=== PATIENT | female | born 1965 | race Caucasian/White ===

== ENCOUNTER 2016-08-23 08:17 | Emergency (ER) | payer BC ==
[2016-08-23 08:46] VITALS: BP 141/69
--- NOTE | 2016-08-23 09:02 | RAD ---
Indication: Right foot pain. 3 views of the right foot demonstrates no fracture. No other bone or joint abnormality is identified. IMPRESSION: No fracture of the right foot is noted.
--- NOTE | 2016-08-23 09:18 | UC ---
Lower Extremity/Ankle HPI - HPI Summary HPI Summary: RIGHT FOOT PAIN X 1 DAY DROPPED SOMETHING ON HER RIGHT FOOT ONE DAY AGO INCREASE IN PAIN THIS AM , HAD DIFFICULTY THIS MORNING TO WALK - History of Current Complaint Chief Complaint: UCLowerExtremity Stated Complaint: RIGHT FOOT PAIN Time Seen by Provider: 08/23/16 08:41 Hx Obtained From: Patient Hx Last Menstrual Period: 08/22/16 ?: No Onset/Duration: Sudden Onset, Lasting Days - 1, Still Present Severity Initially: Moderate Severity Currently: Moderate Aggravating Factor(s): Standing, Ambulation Alleviating Factor(s): Rest, Elevation, Ice Able to Bear Weight: Yes - Allergies/Home Medications Allergies/Adverse Reactions: Allergies Allergy/AdvReac Type Severity Reaction Status Date / Time No Known Allergies Allergy Verified 08/23/16 08:28 Home Medications: Home Medications Calcium/Vitamin D TAB 250/125* [Oscal D TAB 250/125*] 1 tab PO DAILY 08/23/16 [ History Confirmed 08/23/16] PMH/Surg Hx/FS Hx/Imm Hx Endocrine History Of: Reports: Diabetes - type 2, Thyroid Disease - hypothyroid Cardiovascular History Of: Reports: Cardiac Disorders - DC x2- last was 2012; stent, angioplasty, Hypertension Respiratory History Of: Denies: COPD - cough for sev days - Surgical History Surgical History: Yes Surgery Procedure, Year, and Place: c-sect x2, cardiac stent, gastric bypass 2004 - Family History Known Family History: Positive: Hypertension - Social History Alcohol Use: Rare Substance Use Type: None Smoking Status (MU): Heavy Every Day Tobacco Smoker Type: Cigarettes Amount Used/How Often: 1 pack day Review of Systems Constitutional: Negative Skin: Negative Eyes: Negative Musculoskeletal: Other: - RIGHT FOOT PAIN All Other Systems Reviewed And Are Negative: Yes Physical Exam Triage Information Reviewed: Yes Appearance: Well-Appearing, No Pain Distress, Well-Nourished Vital Signs: Initial Vital Signs Temp 98.5 F 08/23/16 08:18 Pulse 73 08/23/16 08:18 Resp 18 08/23/16 08:18 BP 141/69 08/23/16 08:18 Pulse Ox 100 08/23/16 08:18 Vital Signs Reviewed: Yes Eye Exam: Normal Eyes: Positive: Conjunctiva Clear ENT: Positive: Normal ENT inspection, Hearing grossly normal, Pharynx normal Neck: Positive: Supple, Nontender, No Lymphadenopathy Respiratory: Positive: Chest non-tender, Lungs clear, Normal breath sounds Cardiovascular: Positive: RRR, No Murmur, Pulses Normal Musculoskeletal: Positive: Other: - RIGHT FOOT : NO SWELLING, NO ERYTHEMA, + TENDERNESS MIDFOOT Lower Extremity Course/Dx - Differential Dx/Diagnosis Provider Diagnoses: CONTUSION FOOT Discharge - Discharge Plan Condition: Stable Disposition: HOME Patient Education Materials: Foot Contusion (ED) Forms: *Work Release Referrals: Tito Hickey MD [Primary Care Provider] - 7 Days
== END 2016-08-23 09:22 | disposition home or self-care (01) ==
LOC: UCCORT 08:17
DX: S90.31XA Contusion of right foot, initial encounter (principal); W20.8XXA Other cause of strike by thrown, projected or falling object, initial encounter; Y93.9 Activity, unspecified; Y92.9 Unspecified place or not applicable; E11.8 Type 2 diabetes mellitus with unspecified complications; E03.9 Hypothyroidism, unspecified; I25.2 Old myocardial infarction; I10 Essential (primary) hypertension; F17.210 Nicotine dependence, cigarettes, uncomplicated; Z95.5 Presence of coronary angioplasty implant and graft; Z98.84 Bariatric surgery status
CPT/HCPCS: 99213; G0463

== ENCOUNTER 2017-01-16 14:47 | Emergency (ER) | payer BC ==
--- NOTE | 2017-01-16 15:52 | UC ---
Respiratory Complaint HPI - HPI Summary HPI Summary: 51 YEAR OLD FEMALE PRESENTS WITH COMPLAINS OF COUGH, CHEST CONGESTION AND WHEEZING. - History of Current Complaint Stated Complaint: COUGH/CONGESTION Time Seen by Provider: 01/16/17 15:51 Hx Obtained From: Patient Hx Last Menstrual Period: 07/22/14 Onset/Duration: Lasting Days Severity Initially: Moderate Severity Currently: Moderate Pain Scale Used: 0-10 Numeric - 6 Associated Signs And Symptoms: Positive: Wheezing - Allergies/Home Medications Allergies/Adverse Reactions: Allergies Allergy/AdvReac Type Severity Reaction Status Date / Time No Known Allergies Allergy Verified 01/16/17 15:55 Home Medications: Home Medications Ascorbic Acid TAB* [Vitamin C TAB*] 500 mg PO DAILY 01/16/17 [History Confirmed 01/16/17] Atorvastatin* [Lipitor 40 MG*] 40 mg PO 1700 01/16/17 [History Confirmed ] Calcium Carbonate-Vitamin D [Calcium + D3 600-200 mg-Unit] 1 tab PO DAILY [History Confirmed 01/16/17] Cholecalciferol [Vitamin D3] 50,000 unit PO WEEKLY 01/16/17 [History Confirmed 01/16/17] Clopidogrel TAB* [Plavix TAB*] 75 mg PO DAILY 01/16/17 [History Confirmed ] Ferrous Sulfate TAB* 3 cap PO DAILY 01/16/17 [History Confirmed 01/16/17] Furosemide TAB* [Lasix TAB*] 20 mg PO DAILY 01/16/17 [History Confirmed 01/16/17 ] Insulin Degludec [Tresiba Flextouch] 40 unit SUBCUT DAILY 01/16/17 [History Confirmed 01/16/17] Levothyroxine TAB* [Synthroid TAB*] 50 mcg PO DAILY 01/16/17 [History Confirmed 01/16/17] Lisinopril TAB* [Prinivil TAB 5 MG*] 2.5 mg PO DAILY 01/16/17 [History Confirmed 01/16/17] Magnesium Oxide TAB* [MagOx 400 TAB*] 400 mg PO DAILY 01/16/17 [History Confirmed 01/16/17] Metoprolol Tartrate TAB* [Lopressor TAB*] 25 mg PO DAILY 01/16/17 [History Confirmed 01/16/17] Multivitamins/Minerals TAB* [Thera M Plus TAB*] 1 tab PO DAILY 01/16/17 [ History Confirmed 01/16/17] Sertraline* [Zoloft*] 150 mg PO DAILY 01/16/17 [History Confirmed 01/16/17] metFORMIN* [Glucophage 1000 MG TAB *] 1,000 mg PO 0800 01/16/17 [History Confirmed 01/16/17] PMH/Surg Hx/FS Hx/Imm Hx Previously Healthy: Yes - Surgical History Surgical History: Yes Surgery Procedure, Year, and Place: c-sect x2, cardiac stent, gastric bypass 2004 - Family History Known Family History: Positive: Hypertension - Social History Alcohol Use: Occasionally Substance Use Type: None Smoking Status (MU): Heavy Every Day Tobacco Smoker Type: Cigarettes Amount Used/How Often: 1 pack day Review of Systems Constitutional: Negative Skin: Negative Eyes: Negative ENT: Nasal Discharge, Sinus Congestion, Sinus Pain/Tenderness Respiratory: Shortness Of Breath, Cough Cardiovascular: Negative Gastrointestinal: Negative Genitourinary: Negative Motor: Negative Neurovascular: Negative Musculoskeletal: Negative Neurological: Negative Psychological: Negative Is Patient Immunocompromised?: Yes All Other Systems Reviewed And Are Negative: Yes Physical Exam Triage Information Reviewed: Yes Vital Signs Reviewed: Yes Eye Exam: Normal ENT Exam: Normal Dental Exam: Normal Neck exam: Normal Neck: Positive: 1 Respiratory: Positive: Wheezing Cardiovascular Exam: Normal Abdominal Exam: Normal Musculoskeletal Exam: Normal Neurological Exam: Normal Psychological Exam: Normal Skin Exam: Normal Respiratory Course/Dx - Differential Dx/Diagnosis Provider Diagnoses: COUGH. CHEST CONGESTION Discharge - Discharge Plan Condition: Stable Disposition: HOME Prescriptions: Albuterol HFA INHALER* [Ventolin HFA Inhaler*] 1 puff INH Q6H PRN #1 mdi PRN Reason: Wheezing Amoxicillin/Clavulanate TAB* [Augmentin TAB 875*] 875 mg PO BID #20 tab Methylprednisolone [Medrol Dosepak 4 MG*] 4 mg PO .SEE KALI INSTRUCTION #21 tab guaiFENesin/CODIEN 100MG-10MG* [Robitussin AC 100Mg-10Mg*] 5 ml PO Q6H PRN #120 ml MDD 20 PRN Reason: Cough Patient Education Materials: Acute Bronchitis (ED) Forms: *Work Release Referrals: Tito Hickey MD [Primary Care Provider] -
[2017-01-16 15:56] VITALS: BP 143/78
== END 2017-01-16 16:15 | disposition home or self-care (01) ==
LOC: UCCORT 14:47
DX: R05 Cough (principal); R09.89 Other specified symptoms and signs involving the circulatory and respiratory systems; F17.210 Nicotine dependence, cigarettes, uncomplicated; Z98.84 Bariatric surgery status; Z95.5 Presence of coronary angioplasty implant and graft
CPT/HCPCS: 99212; G0463

== ENCOUNTER 2017-02-06 09:57 | Emergency (ER) | payer BC ==
[2017-02-06 10:49] VITALS: BP 155/73
--- NOTE | 2017-02-06 10:50 | UC ---
Back Pain HPI - HPI Summary HPI Summary: 51 year old female presents with complains of tailbone pain after falling down. - History of Current Complaint Chief Complaint: UCBackPain Stated Complaint: TAILBONE COMPLAINT Time Seen by Provider: 02/06/17 10:47 Hx Obtained From: Patient Hx Last Menstrual Period: 2 wks ago Onset/Duration: Sudden Onset Timing: Lasting Days Severity Initially: Moderate Severity Currently: Moderate - Allergies/Home Medications Allergies/Adverse Reactions: Allergies Allergy/AdvReac Type Severity Reaction Status Date / Time Amoxicillin [From Augmentin] Allergy Itching Verified 02/06/17 10:43 Clavulanic Acid Allergy Itching Verified 02/06/17 10:43 [From Augmentin] Home Medications: Home Medications Gabapentin CAP(*) [Neurontin 100 mg CAP(*)] 100 mg PO TID 02/06/17 [History Confirmed 02/06/17] Ibuprofen TAB* [Motrin TAB* 800 MG] 800 mg PO Q6H 02/06/17 [History Confirmed ] PMH/Surg Hx/FS Hx/Imm Hx Previously Healthy: Yes - Surgical History Surgical History: Yes Surgery Procedure, Year, and Place: c-sect x2, cardiac stent, gastric bypass 2004 - Family History Known Family History: Positive: Hypertension - Social History Alcohol Use: Occasionally Substance Use Type: None Smoking Status (MU): Heavy Every Day Tobacco Smoker Type: Cigarettes Amount Used/How Often: 1 pack day Length of Time of Smoking/Using Tobacco: started age 14 Review of Systems Constitutional: Negative Skin: Negative Eyes: Negative ENT: Negative Respiratory: Negative Cardiovascular: Negative Gastrointestinal: Negative Genitourinary: Negative Motor: Negative Neurovascular: Negative Musculoskeletal: Other: - tailbone pain Neurological: Negative Psychological: Negative All Other Systems Reviewed And Are Negative: Yes Physical Exam Triage Information Reviewed: Yes Vital Signs: Initial Vital Signs Temp 36.3 C 02/06/17 10:45 Pulse 71 02/06/17 10:45 Resp 16 02/06/17 10:45 BP 155/73 02/06/17 10:45 Pulse Ox 100 02/06/17 10:45 Vital Signs Reviewed: Yes Eye Exam: Normal ENT Exam: Normal Dental Exam: Normal Neck exam: Normal Neck: Positive: 1 Respiratory Exam: Normal Cardiovascular Exam: Normal Abdominal Exam: Normal Musculoskeletal: Positive: Other: - tailbone pain Neurological Exam: Normal Psychological Exam: Normal Skin Exam: Normal Back Pain Course/Dx - Differential Dx/Diagnosis Provider Diagnoses: coccyxdynia Discharge - Discharge Plan Condition: Stable Disposition: HOME Prescriptions: Meloxicam [Mobic] 7.5 mg PO BID PC #30 tab Methocarbamol TAB* [Robaxin 500 MG TAB*] 500 mg PO TID PRN #30 tab PRN Reason: Spasms Patient Education Materials: Coccyx Injury (ED) Forms: *Work Release Referrals: Ac Thomas MD [Medical Doctor] - Tito Hickey MD [Primary Care Provider] -
--- NOTE | 2017-02-06 11:28 | RAD ---
INDICATION: Injury to coccyx COMPARISON: None TECHNIQUE: AP and lateral views of the coccyx and sacrum were performed FINDINGS: The osseous structures are normal. The SI joints appear intact. The visualized symphysis is normal. The soft tissues are normal. IMPRESSION: NEGATIVE EXAMINATION
== END 2017-02-06 11:41 | disposition home or self-care (01) ==
LOC: UCCORT 09:57
DX: M53.3 Sacrococcygeal disorders, not elsewhere classified (principal); F17.210 Nicotine dependence, cigarettes, uncomplicated
CPT/HCPCS: 72220; 99212; G0463

== ENCOUNTER 2017-11-13 09:52 | Emergency (ER) | payer BC ==
[2017-11-13 10:39] VITALS: BP 112/54
[2017-11-13] MEDS ORDERED: Ibuprofen TAB* 600 MG PO ONE (11:10)
--- NOTE | 2017-11-13 11:37 | RAD ---
INDICATION: Right hand injury. TECHNIQUE: 4 views of the right hand were obtained. FINDINGS: There is soft tissue swelling dorsal to the metacarpal bones. The bones are normal alignment. No fracture is seen. Joint spaces appear maintained. IMPRESSION: SOFT TISSUE SWELLING, NO FRACTURE IS SEEN.
--- NOTE | 2017-12-03 18:53 | UC ---
Hand/Wrist HPI - HPI Summary HPI Summary: right hand pain after a fall yesterday, chronic left thumb pain with clicking sound when moved pain managed with a thumb spica splint - History Of Current Complaint Chief Complaint: UCUpperExtremity Stated Complaint: RT HAND/LFT THUMB INJURY Time Seen by Provider: 11/13/17 11:05 Hx Obtained From: Patient Hx Last Menstrual Period: "about three weeks ago, I think" ?: No Mechanism Of Injury: fall Onset/Duration: Sudden Onset Pain Intensity: 7 Pain Scale Used: 0-10 Numeric Character Of Pain: Aching Aggravating Factor(s): Movement Alleviating Factor(s): Nothing Associated Signs And Symptoms: Positive: Negative Related History: Dominant Hand Right - Allergies/Home Medications Allergies/Adverse Reactions: Allergies Allergy/AdvReac Type Severity Reaction Status Date / Time No Known Allergies Allergy Verified 11/13/17 10:31 Home Medications: Home Medications Cholecalciferol (Vitamin D3) [Vitamin D3] 50,000 unit PO WEEKLY 11/13/17 [ History Confirmed 11/13/17] Metformin HCl [Metformin HCl ER] 1,000 mg PO QAM 11/13/17 [History Confirmed ] PMH/Surg Hx/FS Hx/Imm Hx Previously Healthy: No Endocrine History: Diabetes, Hypothyroidism Cardiovascular History: Hypertension Psychological History: Depression - Surgical History Surgical History: Yes Surgery Procedure, Year, and Place: c-sect x2, cardiac stent, gastric bypass 2004 - Family History Known Family History: Positive: Hypertension - Social History Occupation: Employed Full-time Lives: With Family Alcohol Use: Rare Substance Use Type: None Smoking Status (MU): Heavy Every Day Tobacco Smoker Type: Cigarettes Amount Used/How Often: 1 PPD Length of Time of Smoking/Using Tobacco: Since Age 14 Review of Systems Constitutional: Negative Skin: Negative Eyes: Negative ENT: Negative Respiratory: Negative Cardiovascular: Negative Gastrointestinal: Negative Genitourinary: Negative Motor: Negative Neurovascular: Negative Musculoskeletal: Arthralgia - right wrist acute pain, thumb left chronic pain Neurological: Negative Psychological: Negative Is Patient Immunocompromised?: No All Other Systems Reviewed And Are Negative: Yes Physical Exam Triage Information Reviewed: Yes Appearance: Well-Appearing, No Pain Distress, Well-Nourished Vital Signs: Initial Vital Signs Temp 98.6 F 11/13/17 10:29 Pulse 66 11/13/17 10:29 Resp 16 07/23/18 10:29 BP 112/54 11/13/17 10:29 Pulse Ox 98 11/13/17 10:29 Vital Signs Reviewed: Yes Eye Exam: Normal Eyes: Positive: Conjunctiva Clear ENT Exam: Normal ENT: Positive: Normal ENT inspection, Hearing grossly normal. Negative: Trismus , Muffled voice, Hoarse voice Dental Exam: Normal Neck exam: Normal Neck: Positive: Supple, Nontender Respiratory Exam: Normal Respiratory: Positive: Chest non-tender, No respiratory distress, No accessory muscle use Cardiovascular Exam: Normal Cardiovascular: Positive: RRR, Pulses Normal, Brisk Capillary Refill Musculoskeletal Exam: Normal, Other Musculoskeletal: Positive: Strength Intact, ROM Intact, No Edema Neurological Exam: Normal Neurological: Positive: Alert, Muscle Tone Normal Psychological Exam: Normal Skin Exam: Normal Diagnostics - Radiology No standard instances Xray Interpretation: No Acute Changes Radiology Interpretation Completed By: ED Physician, Radiologist - Patient Name : ROZ ENAMORADO Medical Record#: [id number] Ordering Physician: Ails Gomez NP Acct.#: [id number] : 1965 Age: 52 Sex: F Location: [facility] Exam Date : 11/13/17 1109 ADM Status: REG ER Order Information: HAND - RIGHT MINIMUM 3 VIEWS Accession Number: [id number] CPT: 38460 INDICATION: Right hand injury. TECHNIQUE: 4 views of the right hand were obtained. FINDINGS: There is soft tissue swelling dorsal to the metacarpal bones. The bones are normal alignment. No fracture is seen. Joint spaces appear maintained. IMPRESSION: SOFT TISSUE SWELLING, NO FRACTURE IS SEEN. <Electronically signed by Lenard Kim MD in [place]> 11/13/17 1134 Dictated By: Lenard iKm MD Dictated Date/Time: 1134 Transcribed Date/Time: 11/13/17 1132 Copy to: CC:Alis Gomez NP; Luis Harrison MD; Tito Hickey MD Imaging - [facility] Imaging - [facility] Imaging - [facility] [address] [address] ph ([phone]) ph ([phone]) ph ([phone]) This report is only to be considered final once signed by the Provider(s) as displayed in the "<Electronically Signed by >" field (s). Absence of a signature indicates the report is in a draft status and still needs to be finalized. In the event this document was created by someone other than the signing Provider, the individual initiating the document will be listed in the "Entered by:" or "Dictated by:" melo. 1 of 1 Hand/Wrist Course/Dx - Course Course Of Treatment: dory wrap, right hand, thumb spica left hand, rest ice elevation, tylenol for pain forllow with Dr. Thomas - Differential Dx/Diagnosis Provider Diagnoses: right hand contusion, left thumb pain Discharge - Sign-Out/Discharge Documenting (check all that apply): Patient Departure - Discharge Plan Condition: Stable Disposition: HOME Patient Education Materials: Contusion in Adults (ED), Trigger Finger (ED) Referrals: Ac Thomas MD [Medical Doctor] - 3 Days Additional Instructions: Per institutional requirements, I have reviewed the chart, however, I was not consulted specifically or made aware of this patient by the above midlevel provider. I did not personally evaluate, interact with , or disposition this patient. - Billing Disposition and Condition Condition: STABLE Disposition: Home
== END 2017-11-13 11:48 | disposition home or self-care (01) ==
LOC: UCCORT 09:52
DX: S60.221A Contusion of right hand, initial encounter (principal); W19.XXXA Unspecified fall, initial encounter; Y93.9 Activity, unspecified; Y92.9 Unspecified place or not applicable; M79.645 Pain in left finger(s); E11.9 Type 2 diabetes mellitus without complications; Z79.84 Long term (current) use of oral hypoglycemic drugs; Z95.5 Presence of coronary angioplasty implant and graft; Z82.49 Family history of ischemic heart disease and other diseases of the circulatory system; F17.210 Nicotine dependence, cigarettes, uncomplicated
CPT/HCPCS: 99212; A9270-GY; G0463

== ENCOUNTER 2018-01-10 17:15 | Emergency (ER) | payer BC ==
[2018-01-10 17:33] VITALS: BP 144/44
[2018-01-10] MEDS ORDERED: Albuterol/Ipratropium NEB.SOL* Albuterol 2.5 MG/Ipratropium 0.5 MG 3 ML INH ONE (17:43)
--- NOTE | 2018-01-10 18:15 | UC ---
Respiratory Complaint HPI - HPI Summary HPI Summary: 52 YO FEMALE who comes to clinic today with complaint of upper respiratory tract infection symptoms and shortness of breath. Her symptoms started 5 days ago. She has a runny nose and throat rhinorrhea cough chest congestion and wheezing. Shortness of breath got a lot worse over the last 24 hours. She is bringing up sputum which is colored. Denies any pedal edema or chest pain. She does have a history of CHF but she does not feel this is her CHF. She feels this is her COPD with bronchitis. No fever. - History of Current Complaint Chief Complaint: UCGeneralIllness Stated Complaint: UPPER RESPITORY,SOB Time Seen by Provider: 01/10/18 17:43 Hx Last Menstrual Period: 2 wks ago Pain Intensity: 0 - Allergies/Home Medications Allergies/Adverse Reactions: Allergies Allergy/AdvReac Type Severity Reaction Status Date / Time No Known Allergies Allergy Verified 01/10/18 17:33 Home Medications: Home Medications D-Methorphan/PE/Acetaminophen [Theraflu Expressmax Sever 10-5-325 mg] 1 tab PO ONCE PRN 01/10/18 [History Confirmed 01/10/18] PMH/Surg Hx/FS Hx/Imm Hx Cardiovascular History: Cardiac Disease, Hypertension, Congestive Heart Failure Respiratory History: COPD, Bronchitis - Surgical History Surgical History: Yes Surgery Procedure, Year, and Place: c-sect x2, cardiac stent, gastric bypass 2004. cholecystectomy at time of gastric bypass. - Family History Known Family History: Positive: Hypertension - Social History Alcohol Use: Rare Substance Use Type: None Smoking Status (MU): Heavy Every Day Tobacco Smoker Type: Cigarettes Amount Used/How Often: 1 PPD Length of Time of Smoking/Using Tobacco: Since Age 14 Review of Systems Constitutional: Negative Skin: Negative Eyes: Negative ENT: Nasal Discharge, Sinus Congestion Respiratory: Shortness Of Breath Cardiovascular: Negative Gastrointestinal: Negative Motor: Negative Neurovascular: Negative Musculoskeletal: Negative Neurological: Negative Psychological: Negative Is Patient Immunocompromised?: No All Other Systems Reviewed And Are Negative: Yes Physical Exam Triage Information Reviewed: Yes Appearance: No Pain Distress, Ill-Appearing - MILD Vital Signs: Initial Vital Signs Temp 97.7 F 01/10/18 17:18 Pulse 72 01/10/18 17:18 Resp 16 01/10/18 17:18 BP 144/44 01/10/18 17:18 Pulse Ox 100 01/10/18 17:18 Vital Signs Reviewed: Yes Eye Exam: Normal Eyes: Positive: Conjunctiva Clear ENT: Positive: Nasal congestion, Nasal drainage, TMs normal Neck exam: Normal Neck: Positive: Supple Respiratory: Positive: No accessory muscle use, Wheezing Cardiovascular: Positive: RRR Abdomen Description: Positive: Nontender, Soft Bowel Sounds: Positive: Present Musculoskeletal Exam: Normal Musculoskeletal: Positive: Strength Intact, No Edema Neurological Exam: Normal Neurological: Positive: Alert Psychological Exam: Normal Skin Exam: Normal UC Diagnostic Evaluation - Laboratory O2 Sat by Pulse Oximetry: 100 Respiratory Course/Dx - Course Course Of Treatment: Improved breathing after a DuoNeb in clinic. We discussed the possibility of CHF. The patient does not believe this is her CHF. She's had upper respiratory tract infection symptoms prior to her shortness of breath and with the wheezing is consistent with COPD. Due to "COmorbidities we will treat with antibiotics and steroids and albuterol. Follow up with primary care doctor or recheck sooner if worse. - Differential Dx/Diagnosis Provider Diagnoses: BRONCHITIS. COPD EXACERBATION Discharge - Sign-Out/Discharge Documenting (check all that apply): Patient Departure All imaging exams completed and their final reports reviewed: No Studies - Discharge Plan Condition: Stable Disposition: HOME Prescriptions: Azithromyxin KALI (NF) [Z-Kali (Zithromax) 250 mg tabs #6] 2 tab PO .TODAY, THEN 1 DAILY #6 tab predniSONE TAB* [Deltasone 20 MG TAB*] 40 mg PO DAILY #10 tab Patient Education Materials: Acute Bronchitis (ED), COPD (Chronic Obstructive Pulmonary Disease) (ED) Referrals: Tito Hickey MD [Primary Care Provider] - Additional Instructions: FOLLOW UP WITH YOUR DOCTOR. GO TO THE EMERGENCY DEPARTMENT FOR ANY WORSENING OF YOUR CONDITION OR QUESTIONS OR CONCERNS. - Billing Disposition and Condition Condition: STABLE Disposition: Home
== END 2018-01-10 18:26 | disposition home or self-care (01) ==
LOC: UCCORT 17:15
DX: J44.1 Chronic obstructive pulmonary disease with (acute) exacerbation (principal); Z95.5 Presence of coronary angioplasty implant and graft; Z98.84 Bariatric surgery status; Z90.49 Acquired absence of other specified parts of digestive tract; F17.210 Nicotine dependence, cigarettes, uncomplicated
CPT/HCPCS: 93005; 99212; A9270-GY; G0463

== ENCOUNTER 2018-08-08 08:11 | Emergency (ER) | payer BC ==
[2018-08-08 08:30] VITALS: BP 137/54
--- NOTE | 2018-08-08 09:12 | UC ---
Upper Extremity HPI - HPI Summary HPI Summary: 53-year-old woman comes in with a chief complaint of right elbow pain. Started several days ago. Patient states that there is is tenderness when she touches the area and also when she is using her computer mouse. No known trauma. The pain and the redness is over the proximal ulna. No fevers or chills. Patient has full range of motion of the fingers wrist elbows and shoulders. Certain movements of the elbow fingers wrist due to decrease the pain. She's been putting heat on it and taking ibuprofen and is getting worse rather than better. - History of Current Complaint Chief Complaint: UCUpperExtremity Stated Complaint: RIGHT ELBOW PAIN Time Seen by Provider: 08/08/18 08:59 Hx Last Menstrual Period: 08/04/18 Pain Intensity: 6 - Allergies/Home Medications Allergies/Adverse Reactions: Allergies Allergy/AdvReac Type Severity Reaction Status Date / Time No Known Allergies Allergy Verified 08/08/18 08:21 Home Medications: Home Medications Ibuprofen TAB* [Advil TAB*] 600 mg PO Q6H PRN 08/08/18 [History Confirmed ] PMH/Surg Hx/FS Hx/Imm Hx Previously Healthy: Yes Endocrine History: Hypothyroidism Cardiovascular History: Hypertension - Surgical History Surgical History: Yes Surgery Procedure, Year, and Place: c-sect x2, cardiac stent, gastric bypass 2004. cholecystectomy at time of gastric bypass. - Family History Known Family History: Positive: Hypertension - Social History Alcohol Use: Rare Substance Use Type: None Smoking Status (MU): Heavy Every Day Tobacco Smoker Type: Cigarettes Amount Used/How Often: 1 PPD Length of Time of Smoking/Using Tobacco: Since Age 14 Review of Systems All Other Systems Reviewed And Are Negative: Yes Constitutional: Positive: Negative Skin: Positive: Other - SEE HPI Eyes: Positive: Negative ENT: Positive: Negative Respiratory: Positive: Negative Cardiovascular: Positive: Negative Gastrointestinal: Positive: Negative Motor: Positive: Negative Neurovascular: Positive: Negative Musculoskeletal: Positive: Other: - SEE HPI Neurological: Positive: Negative Psychological: Positive: Negative Is Patient Immunocompromised?: No Physical Exam Triage Information Reviewed: Yes Appearance: Well-Appearing, No Pain Distress, Well-Nourished Vital Signs: Initial Vital Signs Temp 97.4 F 08/08/18 08:25 Pulse 71 08/08/18 08:25 Resp 15 08/08/18 08:25 BP 137/54 08/08/18 08:25 Pulse Ox 100 08/08/18 08:25 Vital Signs Reviewed: Yes Eye Exam: Normal Eyes: Positive: Conjunctiva Clear Neck: Positive: Supple Respiratory: Positive: No respiratory distress Musculoskeletal: Positive: Other: - Patient's right elbow is tender to palpation at the proximal ulna. This area is slightly swollen and erythematous and warm to touch. The elbow joint itself is not swollen or erythematous. There is no streaking no skin break. Elbow has full range of motion and full strength. Fingers wrist shoulder on that side also have full range of motion full-strength. Normal capillary refill no sensation deficit. Neurological: Positive: Alert, Muscle Tone Normal Psychological Exam: Normal Psychological: Positive: Age Appropriate Behavior Skin: Positive: Other - MILD ERYTHEMA RT ELBOW AT PROXIMAL ULNA; NO STREAKING; NO SKIN BREAK/DRAINAGE. Upper Extremity Course/Dx - Course Course Of Treatment: The area of inflammation at the right elbow is most probably either inflamed bursa or a cellulitis. At this time we'll treat for both. We discussed using ice and continue with Motrin. Also trying to avoid movements that make it worse. We'll start Keflex. If worsens she'll get reevaluated right away. If not completely improved follow up either with primary care orthopedics or sports medicine. - Differential Dx/Diagnosis Provider Diagnosis: Right elbow pain, Cellulitis of right elbow Discharge - Sign-Out/Discharge Documenting (check all that apply): Patient Departure All imaging exams completed and their final reports reviewed: No Studies - Discharge Plan Condition: Stable Disposition: HOME Prescriptions: Cephalexin CAP* [Keflex CAP*] 500 mg PO QID #40 cap Patient Education Materials: Cellulitis (ED), Elbow Bursitis (ED) Forms: *Work Release Referrals: Tito Hickey MD [Primary Care Provider] - Ac Thomas MD [Medical Doctor] - [facility] [Provider Group] Additional Instructions: FOLLOW UP WITH YOUR DOCTOR OR ORTHOPEDICS/SPORTS MEDICINE IF NOT COMPLETELY IMPROVED. GET REEVALUATED SOONER IF YOUR CONDITION WORSENS; FEVER, YOU FEEL ILL OR ANY QUESTIONS OR CONCERNS. - Billing Disposition and Condition Condition: STABLE Disposition: Home
== END 2018-08-08 09:22 | disposition home or self-care (01) ==
LOC: UCCORT 08:11
DX: M25.521 Pain in right elbow (principal); L03.113 Cellulitis of right upper limb; I10 Essential (primary) hypertension; F17.210 Nicotine dependence, cigarettes, uncomplicated
CPT/HCPCS: 99212; G0463

== ENCOUNTER 2018-08-31 09:58 | Emergency (ER) | payer BC, OTHER ==
[2018-08-31 10:44] VITALS: BP 131/53
--- NOTE | 2018-08-31 10:53 | UC ---
Lower Extremity/Ankle HPI - HPI Summary HPI Summary: 53-year-old woman comes in with a chief complaint of left foot pain. Started couple days ago at work when she was walking quite a bit. Pains in the distal foot is also swollen. It's primarily on the dorsum. Pain is worse with flexing and extending the toes and also with walking. No fevers or chills no skin break. - History of Current Complaint Chief Complaint: UCLowerExtremity Stated Complaint: W/C LEFT FOOT PAIN Time Seen by Provider: 08/31/18 10:30 Hx Last Menstrual Period: 08/04/18 Pain Intensity: 0 - Allergies/Home Medications Allergies/Adverse Reactions: Allergies Allergy/AdvReac Type Severity Reaction Status Date / Time No Known Allergies Allergy Verified 08/31/18 10:33 PMH/Surg Hx/FS Hx/Imm Hx Previously Healthy: Yes Endocrine History: Diabetes, Hypothyroidism, Dyslipidemia Cardiovascular History: Hypertension - Surgical History Surgical History: Yes Surgery Procedure, Year, and Place: c-sect x2, cardiac stent, gastric bypass 2004. cholecystectomy at time of gastric bypass. - Family History Known Family History: Positive: Hypertension - Social History Alcohol Use: Rare Substance Use Type: None Smoking Status (MU): Heavy Every Day Tobacco Smoker Type: Cigarettes Amount Used/How Often: 1 PPD Length of Time of Smoking/Using Tobacco: Since Age 14 Review of Systems All Other Systems Reviewed And Are Negative: Yes Constitutional: Positive: Negative Skin: Positive: Other - see hpi Eyes: Positive: Negative ENT: Positive: Negative Respiratory: Positive: Negative Cardiovascular: Positive: Negative Gastrointestinal: Positive: Negative Motor: Positive: Negative Neurovascular: Positive: Negative Musculoskeletal: Positive: Other: - see hpi Neurological: Positive: Negative Psychological: Positive: Negative Is Patient Immunocompromised?: No Physical Exam Triage Information Reviewed: Yes Appearance: Well-Appearing, Well-Nourished, Pain Distress - mild with ambulation Vital Signs: Initial Vital Signs Temp 98.4 F 08/31/18 10:29 Pulse 70 08/31/18 10:29 Resp 20 08/31/18 10:29 BP 131/53 08/31/18 10:29 Pulse Ox 100 08/31/18 10:29 Vital Signs Reviewed: Yes Eye Exam: Normal Neck: Positive: Supple Respiratory: Positive: No respiratory distress Musculoskeletal: Positive: Other: - The left foot the left foot is tender to palpation on the dorsum over the distal metatarsals. Ankle is nontender to palpation Achilles tendon is intact. Normal dorsalis pedis pulses. The foot is not hot to touch. The same temperature as the right foot. Capillary refills the same as the right foot. Nontender on the plantar aspect. No sensation deficit. No skin break. Neurological: Positive: Alert, Muscle Tone Normal Psychological: Positive: Age Appropriate Behavior Skin: Positive: Other - No skin break. Lower Extremity Course/Dx - Course Course Of Treatment: Patient Name: ROZ ENAMORADO Medical Record#: [id number] Ordering Physician: Jg Katz MD Acct.#: [id number] : 1965 Age: 53 Sex: F Location: [facility] Exam Date: 08/31/181043 ADM Status: [facility] ER Order Information: FOOT LEFT 3+ VWS Accession Number: [id number] CPT: 62454 HISTORY: distal left foot pain/swelling . COMPARISONS: None relevant available at the time of dictation. VIEWS: 3, Frontal, lateral, and oblique views of the left foot FINDINGS: BONE DENSITY: Normal. BONES: There is no displaced fracture. JOINTS: There is no arthropathy. ALIGNMENT: There is no dislocation. SOFT TISSUES: Unremarkable. OTHER FINDINGS: None. IMPRESSION: NO ACUTE OSSEOUS INJURY. IF SYMPTOMS PERSIST, RECOMMEND REPEAT IMAGING. <Electronically signed by Artemio Stubbs MD in [place]> 08/31/18 1057 I discussed the x-ray report with the patient. A postop shoe was placed by nursing and clinic and the patient neurovascularly intact after placement of the postop shoe. Overall plan is to rest it elevated eyes it's use anti- inflammatories and follow-up with sports medicine if not completely improved. No evidence of infection at this time. If patient gets worse she needs to get reevaluated sooner. - Differential Dx/Diagnosis Provider Diagnosis: Left foot pain Discharge - Sign-Out/Discharge Documenting (check all that apply): Patient Departure All imaging exams completed and their final reports reviewed: Yes - Discharge Plan Condition: Stable Disposition: HOME Patient Education Materials: Foot Sprain (ED) Forms: *Work Release Referrals: Tito Hickey MD [Primary Care Provider] - [facility] [Provider Group] Additional Instructions: FOLLOW UP WITH SPORTS MEDICINE IF NOT COMPLETELY IMPROVED. GET RECHECKED SOONER IF YOUR CONDITION WORSENS; PAIN, SIGNS OF INFECTION OR ANY QUESTIONS OR CONCERNS. - Billing Disposition and Condition Condition: STABLE Disposition: Home
== END 2018-08-31 11:14 | disposition home or self-care (01) ==
LOC: UCCORT 09:58
DX: M79.672 Pain in left foot (principal); E11.9 Type 2 diabetes mellitus without complications; E03.9 Hypothyroidism, unspecified; E78.5 Hyperlipidemia, unspecified; I10 Essential (primary) hypertension; F17.210 Nicotine dependence, cigarettes, uncomplicated
CPT/HCPCS: 99213; G0463